=== PATIENT | male | born 1985 | race Caucasian/White ===

== ENCOUNTER 2019-03-14 19:04 | Emergency (ER) | payer SELFPAY ==
[~2019-03-14] VITALS: Ht 170.2 cm; Wt 92.1 kg
[2019-03-14 19:14] VITALS: Ht 170.2 cm; Wt 92.1 kg
[2019-03-14 21:08] VITALS: BP 139/91
== END 2019-03-14 21:08 | disposition home or self-care (01) ==
LOC: ED 19:04
DX: N48.22 Cellulitis of corpus cavernosum and penis (principal); R03.0 Elevated blood-pressure reading, without diagnosis of hypertension
CPT/HCPCS: J0696